=== PATIENT | female | born 1975 | race Caucasian/White ===

== ENCOUNTER → 2017-03-30 | Outpatient (CLI) | payer OTHER ==
[~2017-03-30] MED LIST: HYDROCHLOROTHIA25 MG PO; NAPROXEN25 GM PO
--- NOTE | ~2017-03-30 | CT4 ---
[facility] A Service [facility] RADIOLOGY TEXT RESULTS PATIENT: MARK BARROW LOCATION: [facility] : 73 UNIT #: [id number] AGE: [address]: Lloyd Pressley MD SEX: F ORDER DR: [id number] [place] [address] [id number] O MR#: [id number] Acc #: [id number] NAME: MARK BARROW : 1975 SEX: F STUDY DATE/TIME: 03/30/2017 11:09 UNIT: [facility] ROOM: STUDY DESCRIPTION: CT Abd and Pelv Wo Cont Attending Physician: Lloyd Pressley M.D. Referring Physician: Lloyd Pressley M.D. Ordering Physician: Lloyd Pressley M.D. Primary Care Physician: Lloyd Pressley M.D. MEDICAL IMAGING REPORT This report is preliminary unless electronic signature is present. EXAM CT abdomen and pelvis without contrast INDICATION Right-sided abdominal pain, particularly right lower quadrant abdominal pain for the past [address] of the abdomen and pelvis. This CT exam was performed with one or more of the following radiation dose reduction techniques: automatic exposure control, adjustment of mA and/or kV according to patient size, and iterative reconstruction. COMPARISON None. FINDINGS ABDOMEN WITHOUT CONTRAST: Included lung bases are clear. Liver, spleen, kidneys, adrenal glands, pancreas have an unremarkable, unenhanced appearance. There is a 3 mm calculus in the gallbladder. No evidence for active inflammation. Bowel loops are nondilated. Appendix is normal. PELVIS WITHOUT CONTRAST: No pelvic mass or fluid. No aggressive-appearing bone lesion. IMPRESSION No acute findings in the abdomen or pelvis. Dictated by... [facility] A Service [facility] RADIOLOGY TEXT RESULTS PATIENT: MARK BARROW LOCATION: [facility] : 73 UNIT #: [id number] AGE: [address]: Lloyd Pressley MD SEX: F ORDER DR: Jimmy Sims M.D. THIS IS AN ELECTRONICALLY VERIFIED REPORT Jimmy Sims M.D. at 03/31/2017 7:34 AM EED/jluis TD: 03/30/2017 16:24 JOB #: [id number] MEDICAL IMAGING REPORT Page 1 of 1
== END | disposition home or self-care (01) ==
LOC: SCT 10:57
DX: R10.31 Right lower quadrant pain (principal); R10.813 Right lower quadrant abdominal tenderness
CPT/HCPCS: 74176